=== PATIENT | female | born 1955 | race Caucasian/White ===

== ENCOUNTER 2018-08-22 17:13 | Emergency (ER) | payer SELFPAY ==
[2018-08-22 17:56] LABS: ABSOLUTE EOSINOPHILS # (AUTO) 0.2 10^3/uL (0.0-0.6); ABSOLUTE LYMPHOCYTES (AUTO) 1.6 10^3/uL (0.5-4.7); ABSOLUTE MONOCYTES (AUTO) 0.5 10^3/uL (0.1-1.4); BASOPHILS % (AUTO) 0.7 % (0-2); EOSINOPHILS % (AUTO) 4.1 % (0-6); HEMATOCRIT 23.2 % (36.0-47.0); LYMPHOCYTES % (AUTO) 29.9 % (13-45); MEAN CORPUSCULAR HEMOGLOBIN 28.5 pg (27.0-33.4); MEAN CORPUSCULAR HGB CONC 32.6 g/dL (32.0-36.0); MEAN CORPUSCULAR VOLUME 88 fl (80-97); MONOCYTES % (AUTO) 9.1 % (3-13); PLATELET COUNT 279 10^3/uL (150-450); RED BLOOD COUNT 2.66 10^6/uL (3.72-5.28); RED CELL DISTRIBUTION WIDTH 16.7 % (11.5-14.0); SEGMENTED NEUTROPHILS % (AUTO) 56.2 % (42-78); TOTAL CELLS COUNTED % (AUTO) 100 %; WHITE BLOOD COUNT 5.3 10^3/uL (4.0-10.5)
[2018-08-22 17:59] LABS: HEMOGLOBIN 7.6 g/dL (12.0-15.5)
[2018-08-22 18:10] LABS: ALANINE AMINOTRANSFERASE 16 U/L (9-52); ALBUMIN 3.3 g/dL (3.5-5.0); ALKALINE PHOSPHATASE 50 U/L (38-126); ANION GAP 7 (5-19); ASPARTATE AMINO TRANSFERASE 17 U/L (14-36); BILIRUBIN,DIRECT 0.1 mg/dL (0.0-0.4); BILIRUBIN,TOTAL 0.1 mg/dL (0.2-1.3); BLOOD UREA NITROGEN 28 mg/dL (7-20); CALCIUM 8.8 mg/dL (8.4-10.2); CARBON DIOXIDE 26 mmol/L (22-30); CHLORIDE 106 mmol/L (98-107); CREATINE KINASE 75 U/L (30-135); GLUCOSE 85 mg/dL (75-110); POTASSIUM 4.8 mmol/L (3.6-5.0); SODIUM 138.5 mmol/L (137-145); TOTAL PROTEIN 5.8 g/dL (6.3-8.2)
[2018-08-22 18:21] LABS: CREATINE KINASE MB 0.62 ng/mL (<4.55)
[2018-08-22 18:25] LABS: TROPONIN I < 0.012 ng/mL
--- NOTE | 2018-08-22 19:00 | EKG REPORT ---
SEVERITY:- NORMAL ECG - SINUS RHYTHM : Confirmed by: Humble Dennis MD 22-Aug-2018 19:00:17
--- NOTE | 2018-08-22 19:09 | RADIOLOGY REPORT (SQ) ---
EXAM DESCRIPTION: CT HEAD WITHOUT COMPLETED DATE/TIME: 08/22/2018 6:59 pm REASON FOR STUDY: sycnope COMPARISON: None. TECHNIQUE: Axial images acquired through the brain without intravenous contrast. Images reviewed wi th bone, brain and subdural windows. Additional sagittal and coronal reconstructions were generated. Images stored on PACS. All CT scanners at this facility use dose modulation, iterative reconstruction, and/or weight based d osing when appropriate to reduce radiation dose to as low as reasonably achievable (ALARA). [facility]: Dose Right [facility]: CareDose [facility]: Dose Right [facility]: Teradose 4D [facility]: Smart [email or web address] RADIATION DOSE: CT Rad equipment meets quality standard of care and radiation dose reduction techniq ues were employed. CTDIvol: 53.2 mGy. DLP: 937 mGy-cm. mGy. LIMITATIONS: None. FINDINGS: VENTRICLES: Normal size and contour. CEREBRUM: No masses. No hemorrhage. No midline shift. No evidence for acute infarction. Normal gra y/white matter differentiation. No areas of low density in the white matter. CEREBELLUM: No masses. No hemorrhage. No alteration of density. No evidence for acute infarction. EXTRAAXIAL SPACES: No fluid collections. No masses. ORBITS AND GLOBE: No intra- or extraconal masses. Normal contour of globe without masses. CALVARIUM: No fracture. PARANASAL SINUSES: No fluid or mucosal thickening. SOFT TISSUES: No mass or hematoma. OTHER: No other significant finding. IMPRESSION: No acute intracranial pathology. EVIDENCE OF ACUTE STROKE: NO. COMMENT: Quality ID # [id number]: Final reports with documentation of one or more dose reduction techniques (e.g., Automated exposure control, adjustment of the mA and/or kV according to patient size, use of iterative reconstruction technique) TECHNICAL DOCUMENTATION: JOB ID: [id number] [employer]- All Rights Reserved Reading location - IP/workstation name: [email or web address]
--- NOTE | 2018-08-22 19:16 | ER Document Report ---
ED Dizziness/Weakness - General Chief Complaint: Syncope Stated Complaint: POSSIBLE SYNCOPE Time Seen by Provider: 08/22/18 18:06 Notes: Very pleasant 62-year-old female with past medical history of anemia and symptoms of passing out presents to the emergency department with chief complaint of syncopal episode x3 today. She was with her friend and they were eating lunch at the [employer] when they were in the vehicle and the friend noticed that the patient started to lose consciousness and then leaned forward and passed out in her face went towards the dashboard she braced her. This happened 2 more times and EMS was called. She never hit her head. On the rig the patient's blood glucose was 74 and orthostatic vital signs were done which were negative. Patient denies any recent illness or fevers, acute shortness of breath or chest pain, numbness or tingling in her arms or legs, intractable nausea or vomiting, no recent diarrheal illness, no other complaints. - Related Data Allergies/Adverse Reactions: No Known Allergies Allergy (Unverified 08/22/18 17:43) Past Medical History - Social History Smoking Status: Current Every Day Smoker Family History: None Patient has suicidal ideation: No Patient has homicidal ideation: No Renal/ Medical History: Denies: Hx Peritoneal Dialysis Review of Systems - Review of Systems Constitutional: See HPI EENT: No symptoms reported Cardiovascular: See HPI Respiratory: See HPI Gastrointestinal: See HPI Genitourinary: No symptoms reported Female Genitourinary: No symptoms reported Musculoskeletal: No symptoms reported Skin: No symptoms reported Hematologic/Lymphatic: No symptoms reported Neurological/Psychological: No symptoms reported Physical Exam - Vital signs Vitals: Temp Pulse BP 98.5 F 61 112/63 08/22/18 17:25 08/22/18 17:25 08/22/18 17:25 - Notes Notes: PHYSICAL EXAMINATION: Reviewed vital signs and charting by RN GENERAL: Alert, interacts well. No acute distress. HEAD: Normocephalic, atraumatic. EYES: Pupils equal, round, and reactive to light. Extraocular movements intact. ENT: Oral mucosa moist, tongue midline. NECK: Full range of motion. Supple. Trachea midline. LUNGS: Clear to auscultation bilaterally, no wheezes, rales, or rhonchi. No respiratory distress. HEART: Regular rate and rhythm. No murmur ABDOMEN: soft, non-tender. No distention. Bowel sounds present EXTREMITIES: Moves all 4 extremities spontaneously. No edema, No cyanosis. NEURO: Alert and oriented x3, no focal neuro deficits, no pronator drift, cranial nerves III to XII grossly intact, no cerebellar dysfunction PSYCH: Normal affect, normal mood. SKIN: Warm, dry, normal turgor. No rashes or lesions noted. Course - Re-evaluation Re-evalutation: 08/22/18 19:22 Patient presented after multiple syncopal episode shortly after lunch. Blood glucose on the ambulance was 74 after eating lunch. Orthostatic vital signs on the rig were negative and patient received 2 L of fluids here it was still complaining of mild dizziness but had negative orthostatics a second time. CT head without was ordered and was negative for any mass or intracranial pathology or bleed. No electrolyte derangements, patient does have a significant anemia of 7.6 which could explain her weakness dizziness, lightheadedness. I do strongly suspect that the patient was significantly more hypoglycemic prior to eating which precipitated the symptoms. Patient does have a negative work-up here in the emergency department and she is stable for discharge with close follow-up with her primary care doctor. Vital signs are all within normal limits. - Vital Signs Vital signs: Temp Pulse Resp BP Pulse Ox 98.5 F 62 18 110/71 99 08/22/18 17:25 08/22/18 18:55 08/22/18 17:37 08/22/18 18:55 08/22/18 17:37 - Laboratory Result Diagrams: 08/22/18 17:33 08/22/18 17:33 Laboratory results interpreted by me: 08/22/18 08/22/18 17:33 17:33 RBC 2.66 L Hgb 7.6 L Hct 23.2 L RDW 16.7 H BUN 28 H Creatinine 2.11 H Est GFR ( Amer) 29 L Est GFR (Non-Af Amer) 24 L Total Bilirubin 0.1 L Total Protein 5.8 L Albumin 3.3 L Discharge - Discharge Clinical Impression: Dizziness, Lightheaded Syncope Qualifiers: Syncope type: unspecified Qualified Code(s): R55 - Syncope and collapse Anemia Qualifiers: Anemia type: unspecified type Qualified Code(s): D64.9 - Anemia, unspecified Condition: Good Disposition: HOME, SELF-CARE Additional Instructions: You are seen in the emergency department this evening for passing out. It is unclear why this happened but your work-up was normal. Her orthostatic vital signs did not show any clear evidence that you are dehydrated and your blood pressure and pulse both maintained in all positions. The CT of your head was negative for anything concerning like a mass or brain bleed. Your lab work was all normal. The one interesting thing was your blood glucose was 74 on the EMS rig AFTER you had eaten something. It could possibly be that your blood sugar was very low which could be a potential cause these episodes. Also, your hemoglobin was 7.6 which is considered anemia. This could cause weakness, dizziness, lightheadedness as well. It is very important to follow-up with your primary care doctor in the next 24 to 48 hours to do a further work-up to figure out why you are so anemic. Also, he should follow-up with them after ER visit. If you continue to have syncopal episodes, he develop acute shortness of breath or chest pain, you develop slurred speech or facial droop, numbness or paralysis in one or more of your extremities, or you have any other concerns please merely return to the emergency department.
[2018-08-22 19:17] LABS: APPEARANCE,URINE SLIGHTLY-CLOUDY; BILIRUBIN,URINE NEGATIVE (NEGATIVE); COLOR,URINE YELLOW; GLUCOSE, URINE NEGATIVE (NEGATIVE); KETONES,URINE NEGATIVE (NEGATIVE); LEUKOCYTE ESTERASE,URINE NEGATIVE (NEGATIVE); NITRITE,URINE NEGATIVE (NEGATIVE); PROTEIN,URINE NEGATIVE (NEGATIVE); URINE SPECIFIC GRAVITY 1.013; UROBILINOGEN,URINE NEGATIVE mg/dL (<2.0)
[2018-08-22 20:24] VITALS: BP 131/73
== END 2018-08-22 20:52 | disposition home or self-care (01) ==
LOC: ER 17:13
DX: R42 Dizziness and giddiness (principal); R55 Syncope and collapse; D64.9 Anemia, unspecified; F17.200 Nicotine dependence, unspecified, uncomplicated
CPT/HCPCS: 36415; 70450; 80053; 81001; 82550; 82553; 84484; 85025; 93005; 93010; 99284